=== PATIENT | female | born 1985 | race Two or more races ===

== ENCOUNTER 2025-04-25 11:29 | Emergency (ER) | payer OTHER ==
[~2025-04-25] VITALS: Ht 149.9 cm; Wt 68.0 kg
[2025-04-25] MEDS ORDERED: KETOROLAC TROMETHAMINE 60 MG VIAL IM ONE (13:30)
[2025-04-25] MEDS ORDERED: ORPHENADRINE CITRATE 30 MG/ML AMPUL IM ONE (13:30)
[2025-04-25] MEDS ORDERED: DEXAMETHASONE SODIUM PHOSPHATE 4 MG/ML VIAL IM ONE (13:30)
[2025-04-25] MEDS ORDERED: DICLOFENAC POTA50 MG PO (16:24)
[2025-04-25] MEDS ORDERED: CYCLOBENZAPRINE10 MG PO (16:24)
[2025-04-25] MEDS ORDERED: TRAMADOL HCL 50 MG TABLET PO ONE (16:30)
== END 2025-04-25 16:49 | disposition home or self-care (01) ==
LOC: ER 11:29
DX: M54.2 Cervicalgia (principal); M54.59 Other low back pain

== ENCOUNTER 2025-04-28 14:19 | Emergency (ER) | payer OTHER ==
[~2025-04-28] VITALS: Ht 149.9 cm; Wt 68.0 kg
[~2025-04-28 14:19] MED LIST: CYCLOBENZAPRINE10 MG PO; DICLOFENAC POTA50 MG PO
[2025-04-28 16:32] VITALS: BP 100/69; O2SAT 98
[2025-04-28] MEDS ORDERED: ORPHENADRINE CITRATE 30 MG/ML AMPUL IM ONE (18:15)
[2025-04-28] MEDS ORDERED: DEXAMETHASONE SODIUM PHOSPHATE 4 MG/ML VIAL IM ONE (18:15)
[2025-04-28] MEDS ORDERED: KETOROLAC TROMETHAMINE 60 MG VIAL IM ONE ×2 (18:15→18:55)
[2025-04-28] MEDS ORDERED: DICLOFENAC SODI75 MG PO (18:16)
[2025-04-28] MEDS ORDERED: BACLOFEN10 MG PO (18:16)
[2025-04-28] MEDS ORDERED: GABAPENTIN100 M2 PO (18:16)
[2025-04-28] MEDS ORDERED: ORPHENADRINE CITRATE 30 MG/ML AMPUL ONE (18:54)
[2025-04-28] MEDS ORDERED: DEXAMETHASONE SODIUM PHOSPHATE 4 MG/ML VIAL ONE (18:55)
== END 2025-04-28 19:52 | disposition home or self-care (01) ==
LOC: ER 14:19
DX: M62.830 Muscle spasm of back (principal); M54.59 Other low back pain